=== PATIENT | female | born 1965 | race Two or more races ===

== ENCOUNTER 2021-04-12 08:12 | Outpatient (CLI) | payer OTHER | END 2021-04-12 08:17 | disposition home or self-care (01) | LOC: NUCLEAR 08:12 | PROVIDERS: ATTEND General Practice | DX: C78.7 Secondary malignant neoplasm of liver and intrahepatic bile duct (principal); C17.2 Malignant neoplasm of ileum | CPT/HCPCS: 78815; A9552 ==

== ENCOUNTER 2022-03-13 07:59 | Outpatient (CLI) | payer OTHER | END 2022-03-13 08:00 | disposition home or self-care (01) | LOC: EDBD 07:59 → NUCLEAR 07:59 | PROVIDERS: ATTEND Obstetrics & Gynecology | DX: C18.7 Malignant neoplasm of sigmoid colon (principal) | CPT/HCPCS: 78812; A9552 ==

== ENCOUNTER 2022-10-12 07:37 | Outpatient (CLI) | payer OTHER | END 2022-10-12 07:41 | disposition home or self-care (01) | LOC: NUCLEAR 07:37 | PROVIDERS: ATTEND Obstetrics & Gynecology | DX: C18.7 Malignant neoplasm of sigmoid colon (principal) | CPT/HCPCS: 78816; A9552 ==